=== PATIENT | male | born 2000 | race Caucasian/White ===

== ENCOUNTER 2020-08-18 09:34 | Day surgery (SDC) | payer BC ==
[2020-08-18] MEDS ORDERED: Glycopyrrolate 0.2 MG/ML 5 ML SYRINGE ONE (10:15)
[2020-08-18] MEDS ORDERED: Rocuronium Bromide 10 MG/ML (10ML VIAL) ONE (10:15)
[2020-08-18] MEDS ORDERED: Lidocaine 1% PF 5 ML VIAL ONE (10:15)
[2020-08-18] MEDS ORDERED: Succinylcholine 200 MG/10 ml SYRINGE FS ONE (10:15)
[2020-08-18] MEDS ORDERED: PROPOFOL 200 MG/20 ML VIAL ONE (10:15)
[2020-08-18] MEDS ORDERED: Piperacillin/Tazobactam 3.375 GM VIAL ONE (10:52)
[2020-08-18] MEDS ORDERED: Sodium Chloride 0.9% 100 ML ONE (10:52)
[2020-08-18] MEDS ORDERED: Ketorolac Tromethamine 30 MG/ML VIAL ONE (10:52)
--- NOTE | 2020-08-18 11:09 | HP ---
HISTORY OF PRESENT ILLNESS: Feliz Kumar is a 19-year-old [employer] student from [place] who has had a past urolithiasis, 3 episodes, in fact this is 4th episode. He presented to the [facility] ER and found to have urolithiasis a week ago. His pain became worse. He reported back to [facility]. Repeat CAT scan revealed appendicitis as well as the right ureteral stone in the UPJ. Dr. Patterson has been consulted. He is sent here for definitive care. ALLERGIES: NONE. TOBACCO: None. ALCOHOL: Socially. MEDICATIONS: None routinely. PAST SURGICAL AND MEDICAL HISTORY: Noncontributory except for past urolithiasis. REVIEW OF SYSTEMS: Ten-point noncontributory. FAMILY HISTORY: Noncontributory. PHYSICAL EXAMINATION: VITAL SIGNS: Blood pressure 118/74, respiratory rate 18, heart rate 72. HEAD EARS, EYES, NOSE, AND THROAT: Unremarkable. LUNGS: Clear to auscultation. CARDIAC: Regular rate and rhythm. No murmur or gallop. ABDOMEN: Soft. Tenderness in his right lower quadrant with mild guarding. EXTREMITIES: Unremarkable. LABORATORY DATA: COVID negative from [facility]. ASSESSMENT AND PLAN: 1. Appendicitis. Plan laparoscopic video appendectomy. Risks and benefits explained. He consents. 2. Urolithiasis, per Urology. Await their assessment. Intervention to be done under same anesthetic as his appendectomy. Job ID: [id number]
--- NOTE | 2020-08-18 12:30 | CON ---
DATE OF CONSULTATION: 08/18/2020 CONSULTING: [facility] [place] [facility]. REASON FOR CONSULTATION: Ureteral stone. HISTORY OF PRESENT ILLNESS: Mr. Kumar is a 19-year-old white male who presented to the emergency room at [facility] [place] [facility] with right lower quadrant and right flank pain. He has actually had pain for approximately 1 week and initially presented to the ER at [facility] [place] as well on August 13. At that time, he underwent a CT scan, which demonstrated an approximately 4 to 5 mm right distal ureteral stone and some nephrolithiasis. He was given Flomax as well as pain medication and instructed to drink lots of water to try and pass the stone and given a followup with Urology. Unfortunately, the patient's pain progressed. He began having worsening right flank pain with pain up to 8/10 with radiation to the right groin. He began having hematuria. He also started noticing abdominal pain as well associated with nausea. He thought the stone was getting worse and so he came back to [facility]. He had a repeat CT scan done today, which demonstrated the same distal right ureteral stone, which had not moved, as well as the left nephrolithiasis, but in addition, it was noted that the patient had periappendiceal inflammation consistent with likely acute appendicitis. He was transferred to [facility] to Dr. Doherty for discussion for a right appendectomy and I am being consulted for assistance with his right ureteral stone. On my discussion with the patient, he reports his pain is under a little bit better control with the pain medication. He is less nauseated. He is not currently having any fevers. He is currently planned for a right laparoscopic appendectomy with Dr. Doherty. He states he does not have any urinary complaints normally. He has not had previous baseline hematuria. He has passed 2 to 3 previous kidney stones on his own, but not requiring any kind of surgery. His father does have a history of kidney stones. He does not have any history of urinary tract infections. He has been noncompliant with his Flomax. ALLERGIES: NONE. HOME MEDICATIONS: 1. Tamsulosin 0.4 mg p.o. at bedtime, the patient is not taking this regularly. 2. Tylenol No. 3 one tablet p.o. q.6 hours p.r.n. pain. PAST MEDICAL HISTORY: Nephrolithiasis. PAST SURGICAL HISTORY: None. FAMILY HISTORY: Significant for kidney stones in his father. SOCIAL HISTORY: The patient smokes tobacco occasionally. He does vape as well. He drinks alcohol, but socially. Denies any illicit drug use or significant alcohol usage. REVIEW OF SYSTEMS: A 12-point review of system was reviewed with the patient and was negative other than what was commented on the HPI, specifically, the nausea and reported vomiting, hematuria, right lower quadrant pain, flank pain, and abdominal pain. The remainder of review of systems was negative. PHYSICAL EXAMINATION: VITAL SIGNS: Temperature 98.4, heart rate 90, respirations 16, blood pressure 146/91. GENERAL: In no apparent distress. Communicating normally. Normal weight. Normal appearance. Well-nourished, well-developed, answering questions appropriately. HEENT: Normocephalic and atraumatic. Pupils are symmetric and round. Sclerae are nonicteric. Trachea midline. Moist mucous membranes. CARDIOVASCULAR: Regular rate and rhythm. Normal S1 and S2. Symmetric pulses. LUNGS: Nonlabored breathing. Symmetric expansion of lungs. Clear anteriorly. ABDOMEN: Soft. Mild periumbilical tenderness and right lower quadrant tenderness. Mild right CVA tenderness. No rebound or guarding. Nondistended. No peritoneal signs. No organomegaly or hernias noted. GENITOURINARY: Deferred at this time. EXTREMITIES: No clubbing, cyanosis, or edema. MUSCULOSKELETAL: No joint deformities or joint erythema noted. Full range of motion. LYMPH: No obvious lymphadenopathy in the groin, axillary, popliteal, or supraclavicular regions. NEUROLOGIC: Cranial nerves 2 through 12 are grossly intact. No focal sensory or motor deficits identified. SKIN: Warm and dry. No rash or lesions. Good turgor. PSYCHIATRIC: Alert and oriented x3. Appropriate mood and affect. LABORATORY EVALUATION: The full set of labs is included in the patient's chart from [facility] [place]. The patient's creatinine is 1.5, which is elevated. White count of 9.6. Urinalysis demonstrates nitrite negative urine, leukocyte esterase negative urine, small blood, yellow appearance. The patient was given Zosyn at [facility]. On CT report, the patient has evidence of acute appendicitis as well as a 4 to 5 mm distal right ureteral stone with hydronephrosis. There are additional 1 to 3 mm stones in the left, approximately three in total. ASSESSMENT AND PLAN: A 19-year-old white male with evidence of acute kidney injury secondary to hydronephrosis from a distal right ureteral stone as well as likely dehydration from vomiting and evidence of acute appendicitis. He is already scheduled for a right laparoscopic appendectomy with Dr. Doherty. I talked to the patient about performing a right ureteroscopy at the same time since the patient will be asleep under anesthesia anyway and he has evidence of acute kidney injury, it would make the most sense to go ahead and remove the right distal ureteral stone. I explained how the surgery is done, including the postoperative course, recovery, and possible need for ureteral stent. If the stent is left, we will likely leave it with a string, so that he may remove it on Friday on his own. The risks of the surgery were discussed, which include, but are not limited to bleeding, infection, damage to the ureter or kidneys, ureteral perforation, need for prolonged stenting, ureteral stricture development, injury to the bladder, urethra, or prostate, and need for further procedures as well as incomplete stone removal. He understands these risks and states he would wish to proceed forward to remove the stone. I would recommend metabolic evaluation in this individual afterwards. SUMMARY OF RECOMMENDATIONS: 1. To OR for laparoscopic appendectomy and right ureteroscopy, laser lithotripsy, basket extraction of stone, and placement of ureteral stent. 2. Keep n.p.o. until after surgery. 3. Pain medication. 4. The patient has already received Zosyn, which should be adequate IV antibiotic coverage, but we can give him an additional dose of Levaquin in preparation for surgery. 5. SCDs bilaterally. 6. The patient's care will be handled on an outpatient basis thereafter. He can probably be discharged home unless Dr. Doherty feels that he needs to stay in the hospital. Job ID: [id number]
[2020-08-18] MEDS ORDERED: Iothalamate Meglumine 60% 50 ML VIAL FS ONE (13:09)
[2020-08-18] MEDS ORDERED: Midazolam HCl 2 mg/2 ml Vial ONE ×2 (13:15→13:34)
[2020-08-18] MEDS ORDERED: B & O ONE (13:24)
[2020-08-18] MEDS ORDERED: Fentanyl 100 MCG/2 ML VIAL ONE (13:34)
[2020-08-18] MEDS ORDERED: ePHEDrine 50 MG/ML VIAL ONE (13:37)
[2020-08-18] MEDS ORDERED: EPINEPHrine 1 MG/ML AMP ONE (13:37)
[2020-08-18] MEDS ORDERED: Bupivacaine PF 0.5% 30 ML VIAL ONE ×2 (13:37→14:17)
[2020-08-18] MEDS ORDERED: SUGAMMADEX SODIUM 200 MG/2 ML VIAL ONE (14:24)
--- NOTE | 2020-08-18 14:58 | OP ---
DATE OF PROCEDURE: 08/18/2020 SERVICE: Urology. PREOPERATIVE DIAGNOSES: 1. Right ureteral stone. 2. Appendicitis. POSTOPERATIVE DIAGNOSES: 1. Right ureteral stone. 2. Appendicitis. PROCEDURE PERFORMED: 1. Right ureteroscopy. 2. Laser lithotripsy. 3. Basket extraction of stone. 4. Placement of 6 x 26 double-J stent. INDICATIONS FOR PROCEDURE: Mr. Kumar is a 19-year-old white male who initially presented to [facility] ER with right flank pain and right abdominal pain. CT demonstrated appendicitis as well as the distal right ureteral stone. He is now going to have his appendix removed by Dr. Doherty and I had recommended a ureteroscopy with stone removal at the same time. Risks and benefits of my portion of the surgery were discussed and he has agreed to proceed forward. DESCRIPTION OF PROCEDURE: After identification of armband and verification of consent, the patient was brought back to the operating room where he underwent general anesthesia with endotracheal intubation. He was then placed in a dorsal lithotomy position, prepped and draped in the usual sterile fashion. After appropriate time-out, a lubricated 22-Monegasque rigid cystoscope was introduced per urethra into the bladder and attention turned towards the right ureteral orifice, which was cannulated with a 0.035 Sensor wire up to the level of renal pelvis. The cystoscope was then removed and a semi-rigid ureteroscope was then placed in alongside the Sensor wire into the distal ureter where the stone was encountered. Using a 365 micron laser fiber, the stone was fragmented into 2 pieces, and then using a 1.9-Monegasque ZeroTip Nitinol basket, the stone was extracted and sent off for routine pathologic evaluation. Final ureteroscopy did not demonstrate any additional stone fragments or stone. The ureteroscope was then removed. The cystoscope was then back-loaded with the Sensor wire back into the bladder and a 6 x 26 double-J stent was advanced over the Sensor wire to the level of renal pelvis. The wire was removed, leaving a good curl in the kidney and a good curl in the bladder. The string was left attached to the stent. The cystoscope was then removed and the string affixed to the patient's penis with an OpSite. A 16-Monegasque Beard catheter was placed into the patient's bladder with 10 mL of sterile water into the balloon as the patient will require a Beard catheter for his laparoscopic appendectomy. The patient was left intubated and then transferred to the open surgical suite where he will undergo his appendectomy with Dr. Doherty from my portion of the surgery. COMPLICATIONS: None. ESTIMATED BLOOD LOSS: Minimal. RETAINED TUBES AND DRAINS: 6 x 26 double-J stent on the right with a 16-Monegasque Beard catheter to gravity drainage. SPECIMENS: Stone for stone analysis. DISPOSITION: The patient is going to get his appendix removed laparoscopically with Dr. Doherty. Postoperatively, he should be able to be discharged home barring any complications and I will see him postoperatively for stone prevention and for a postoperative check. He is instructed to remove his stent on Friday by gently pulling the string until the entire stent is removed. Job ID: [id number]
[2020-08-18] MEDS ORDERED: Meperidine HCl/PF 25 MG/ML VIAL ONE (14:59)
--- NOTE | 2020-08-18 17:04 | OP ---
DATE OF PROCEDURE: 08/18/2020 PREOPERATIVE DIAGNOSES: Acute appendicitis, right ureteral obstruction, urolithiasis. POSTOPERATIVE DIAGNOSES: Acute appendicitis, right ureteral obstruction, urolithiasis. PROCEDURE PERFORMED: Laparoscopic video appendectomy. Note, under the same anesthetic, Dr. Doty performed cystoscopies, right ureteral stone retrieval, and stent placement. Beard left in place and Beard removed at the end of operation, leaving the stent. ANESTHESIA: General anesthesia, local 0.5% Marcaine 30 mL mixed with 1% Xylocaine with epinephrine 20 mL. DESCRIPTION OF PROCEDURE: The patient was taken to the operating room, where under general anesthesia, abdomen was clipped of hair, prepared with ChloraPrep, and draped in routine fashion. Local anesthetic was infiltrated in the skin and subcutaneous tissue about all port sites. Infraumbilical incision made, pneumoperitoneum to 15 mmHg was obtained with Veress needle, replaced with a 5 port, laparoscope inserted. Right lateral subcostal incision made and a 5 port placed. Suprapubic incision made and a 12 port placed. Appendix dissected free. Mesoappendix divided with LigaSure down to the stump of the appendix, dividing with Endo-NOAH blue load stapler. Stapled cecal stump hemostatic and secured. Appendix removed through the trocar. Appendix was acutely inflamed, though without rupture. Good hemostasis noted. Irrigant and pneumoperitoneum evacuated. Suprapubic fascia was approximated with 0 Vicryl, skin with subdermal 4-0 Monocryl, and Sattley glue applied. The patient tolerated the procedure well. Job ID: [id number]
[2020-08-28 15:38] LABS: CA Oxalate Dihydrate 50 % (.); CA Oxalate Monohydrate 10 % (.); Color Tan (.); Stone Weight 14 mg (.)
== END 2020-08-18 16:40 | disposition home or self-care (01) ==
LOC: SDC 09:34
PROVIDERS: ATTEND Specialist
PROC: 0DTJ4ZZ Resection of Appendix, Percutaneous Endoscopic Approach (ICD-10-PCS; principal; 2020-08-18)
PROC: 0TC68ZZ Extirpation of Matter from Right Ureter, Via Natural or Artificial Opening Endoscopic (ICD-10-PCS; principal; 2020-08-18)
PROC: 0T768DZ Dilation of Right Ureter with Intraluminal Device, Via Natural or Artificial Opening Endoscopic (ICD-10-PCS; principal; 2020-08-18)
DX: K35.80 Unspecified acute appendicitis (principal); N20.1 Calculus of ureter; F17.290 Nicotine dependence, other tobacco product, uncomplicated
CPT/HCPCS: 76000; 82365; 88300; 88304; J0171; J1885; J2175; J2250; J2543; J2704; J3010; J3490; S0020

== ENCOUNTER 2022-03-04 13:38 | Outpatient (CLI) | payer BC | END 2022-03-04 13:39 | disposition home or self-care (01) | LOC: RAD 13:38 | PROVIDERS: ATTEND Urology | DX: N20.0 Calculus of kidney (principal) | CPT/HCPCS: 74018 ==